=== PATIENT | male | born 2000 | race Caucasian/White ===

== ENCOUNTER 2021-06-02 11:15 | Inpatient (IN) | payer BC ==
[~2021-06-02] VITALS: Ht 182.9 cm; Wt 77.3 kg
[2021-06-02] MEDS ORDERED: SUCCINYLCHOLINE CHLORIDE 20 MG/ML 10 ML VIAL IVP ONE (12:00)
[2021-06-02] MEDS ORDERED: FentaNYL CITRATE PF 100 MCG/2 ML VIAL IVP ONE ×2 (12:00)
[2021-06-02] MEDS ORDERED: DEXAMETHASONE SOD PHOS 4 MG/ML VIAL IVP ONE (12:00)
[2021-06-02] MEDS ORDERED: PROPOFOL 1% 20 ML VIAL IVP ONE (12:00)
[2021-06-02] MEDS ORDERED: MIDAZOLAM HCL 2 MG/2 ML VIAL IVP ONE ×2 (12:00)
[2021-06-02] MEDS ORDERED: ONDANSETRON HCL 4 MG/2 ML VIAL IVP ONE (12:00)
[2021-06-02] MEDS ORDERED: LIDOCAINE/PF 2% 5 ML VIAL IM ONE (12:00)
[2021-06-02 12:48] LABS: BASOPHILS % (AUTO) 0.3 % (0.0-2.0); EOSINOPHILS % (AUTO) 0.3 % (1.0-6.0); HEMATOCRIT 41.3 % (41-53); HEMOGLOBIN 14.1 g/dL (13.5-17.5); LYMPHOCYTES # (AUTO) 0.7 K/uL (1.0-4.8); LYMPHOCYTES % (AUTO) 4.9 % (22.0-44.0); MEAN CORPUSCULAR HEMOGLOBIN 29.2 pg (26.0-34.0); MEAN CORPUSCULAR HGB CONC 34.2 G/dL (31.0-37.0); MEAN CORPUSCULAR VOLUME 85 fL (80-100); MONOCYTES # (AUTO) 0.6 K/uL (0.1-1.0); MONOCYTES % (AUTO) 4.4 % (2.0-9.0); NEUTROPHILS # (AUTO) 12.3 K/uL (1.8-7.7); PLATELET COUNT (AUTO) 252 K/uL (150-450); RED BLOOD CELL COUNT(AUTO) 4.85 MIL/uL (4.50-5.90); RED CELL DISTRIBUTION WIDTH 12.7 % (11.5-14.5)
[2021-06-02 12:49] LABS: ANION GAP 6 mmol/L (8-16); CALCIUM, TOTAL 8.9 mg/dL (8.8-10.5); CARBON DIOXIDE 31 mmol/L (22-29); CHLORIDE 103 mmol/L (98-107); CREATININE 0.83 mg/dL (0.60-1.30); GLOMERULAR FILTR. RATE CALC > 60 mL/min (>60); GLUCOSE,RANDOM 95 mg/dL (70-110); POTASSIUM 3.6 mmol/L (3.5-5.1); SODIUM SERUM 140 mmol/L (136-145); UREA NITROGEN, BLOOD 16 mg/dL (7-18)
[2021-06-02 12:56] LABS: ALANINE AMINOTRANSFERASE 19 U/L (12-78); ALBUMIN 4.1 g/dL (3.4-5.0); ALKALINE PHOSPHATASE 48 U/L (46-116); ASPARTATE AMINOTRANSFERASE 17 U/L (15-37); BILIRUBIN,TOTAL 0.7 mg/dL (0.1-1.0); LIPASE 64 U/L (73-393)
[2021-06-02 12:57] LABS: NEUTROPHILS % (AUTO) 90.1 % (40.0-70.0)
[2021-06-02] MEDS ORDERED: SODIUM CHLORIDE 0.9% 100 ML ONE (13:23)
[2021-06-02] MEDS ORDERED: IOHEXOL 350 MG/ML 100 ML VIAL ONE (13:23)
[2021-06-02 13:25] LABS: APPEARANCE,URINE CLEAR (CLEAR); BILIRUBIN,URINE NEGATIVE (NEGATIVE); GLUCOSE, URINE (UA) NEGATIVE (NEGATIVE); KETONES,URINE TRACE mg/dL (NEGATIVE); LEUKOCYTE ESTERASE ,URINE NEGATIVE (NEGATIVE); NITRATE,URINE NEGATIVE (NEGATIVE); OCCULT BLOOD,URINE NEGATIVE (NEGATIVE); PH,URINE 6.5 (5.0-8.0); PROTEIN,URINE TRACE mg/dL (NEGATIVE); SPECIFIC GRAVITIY, URINE 1.026 (1.003-1.030); UROBILINOGEN,URINE <=1.0 mg/dL (<=1.0)
[2021-06-02 13:48] LABS: BACTERIA,URINE None Seen /HPF (None Seen); RBC,URINE None Seen /HPF (0-2); SQUAMOUS EPITHELIAL CELL,UR Few /LPF (None Seen); WBC,URINE None Seen /HPF (0-5)
[2021-06-02] MEDS ORDERED: MetroNIDAZOLE 500 MG/NACL 100 ML IV ONE (14:30)
[2021-06-02] MEDS ORDERED: CefTRIAXone 1 GM/DEXTROSE 50 ML IV ONE (14:30)
[2021-06-02] MEDS ORDERED: ONDANSETRON HCL 4 MG/2 ML VIAL IVP PRN (15:00)
[2021-06-02] MEDS ORDERED: SODIUM CHLORIDE 0.9% 1,000 ML IV ONE (15:00)
[2021-06-02] MEDS ORDERED: MORPHINE SULFATE 2 MG/ML SYRINGE IVP PRN (15:00)
[2021-06-02] MEDS ORDERED: ACETAMINOPHEN 325 MG TABLET PO PRN (15:00)
[2021-06-02 16:02] LABS: COVID AG,FIA SOURCE NASAL SWAB
[2021-06-02 16:46] VITALS: BP 106/67
[2021-06-02] MEDS ORDERED: RINGERS SOLUTION,LACTATED 1,000 ML IV ONE (18:30)
[2021-06-02] MEDS ORDERED: BUPIVACAINE 0.25%/EPI 1:200,000/PF 10 ML VIAL ONE (18:33)
[2021-06-02] MEDS ORDERED: SODIUM CHLORIDE 0.9% 0 ML ONE (18:34)
[2021-06-02] MEDS ORDERED: HYDROmorphone 2 MG/ML VIAL IVP PRN (19:15)
[2021-06-02] MEDS ORDERED: FentaNYL CITRATE PF 100 MCG/2 ML VIAL IVP PRN (19:15)
[2021-06-02] MEDS ORDERED: MEPERIDINE-PF 25 MG/ML VIAL IVP PRN (19:15)
[2021-06-02] MEDS: OXYGEN THERAPY IH SCH (20:00)
[2021-06-02] MEDS ORDERED: SUGAMMADEX SODIUM 200 MG/2 ML VIAL IVP ONE (20:16)
[2021-06-02] MEDS ORDERED: ONDANSETRON HCL 4 MG/2 ML VIAL ONE (21:09)
[2021-06-02 21:25] VITALS: BP 147/87
[2021-06-02] MEDS: DOCUSATE SODIUM 100 MG CAPSULE PO SCH (21:39)
[2021-06-02] MEDS: ACETAMINOPHEN 500 MG TABLET PO SCH (21:39)
[2021-06-02] MEDS: OxyCODONE HCL 5 MG IR TABLET PO PRN (22:36)
[2021-06-02] MEDS ORDERED: MetroNIDAZOLE 500 MG/NACL 100 ML IV SCH ×2 (23:00)
[2021-06-03] MEDS: IBUPROFEN 600 MG TABLET PO SCH ×3 (00:41→11:55)
[2021-06-03 05:30] VITALS: BP_SYST 108; BP_SYST 127; BP_DIAS 47; BP_DIAS 66
[2021-06-03] MEDS: OxyCODONE HCL 5 MG IR TABLET PO PRN (06:46)
[2021-06-03 07:32] VITALS: BP 129/73
[2021-06-03] MEDS: OXYGEN THERAPY IH SCH (08:00)
[2021-06-03] MEDS: DOCUSATE SODIUM 100 MG CAPSULE PO SCH (08:50)
[2021-06-03] MEDS: ACETAMINOPHEN 500 MG TABLET PO SCH (08:51)
[2021-06-03] MEDS ORDERED: PANTOPRAZOLE SODIUM 40 MG/VIAL IVP SCH (09:00)
[2021-06-03 09:27] LABS: BASOPHILS % (AUTO) 0.2 % (0.0-2.0); EOSINOPHILS % (AUTO) 0 % (1.0-6.0); HEMATOCRIT 42.2 % (41-53); HEMOGLOBIN 14.4 g/dL (13.5-17.5); LYMPHOCYTES # (AUTO) 0.9 K/uL (1.0-4.8); LYMPHOCYTES % (AUTO) 7.4 % (22.0-44.0); MEAN CORPUSCULAR HEMOGLOBIN 29.1 pg (26.0-34.0); MEAN CORPUSCULAR HGB CONC 34.1 G/dL (31.0-37.0); MEAN CORPUSCULAR VOLUME 86 fL (80-100); MONOCYTES # (AUTO) 0.7 K/uL (0.1-1.0); MONOCYTES % (AUTO) 5.9 % (2.0-9.0); NEUTROPHILS # (AUTO) 10.8 K/uL (1.8-7.7); PLATELET COUNT (AUTO) 305 K/uL (150-450); RED BLOOD CELL COUNT(AUTO) 4.93 MIL/uL (4.50-5.90); RED CELL DISTRIBUTION WIDTH 13.1 % (11.5-14.5)
[2021-06-03 09:29] LABS: NEUTROPHILS % (AUTO) 86.5 % (40.0-70.0)
[2021-06-03] MEDS ORDERED: ACET-3385 PO (12:38)
[2021-06-03] MEDS ORDERED: IBUP-2070 PO (12:39)
[2021-06-03] MEDS ORDERED: CefTRIAXone 1 GM/DEXTROSE 50 ML IV SCH (14:00)
== END 2021-06-03 13:10 | disposition home or self-care (01) | DRG 343 ==
LOC: EMS 11:22 → 6N 15:07
PROVIDERS: ADMIT Internal Medicine; ATTEND Internal Medicine
PROC: 0DTJ4ZZ Resection of Appendix, Percutaneous Endoscopic Approach (ICD-10-PCS; principal; 2021-06-02 19:55)
DX: K35.30 Acute appendicitis with localized peritonitis, without perforation or gangrene (principal); Z20.822 Contact with and (suspected) exposure to COVID-19
CPT/HCPCS: 74177; 80053; 81001; 83690; 85025; 87081; 88304; 99285; C9113; J0330; J0696; J1100; J2250; J2405; J2704; J3010; J3490; J7030; J7050; J7120; Q9967